=== PATIENT | female | born 1990 | race African-American/Black ===

== ENCOUNTER 2018-05-17 12:03 | Inpatient (IN) | payer OTHER ==
[~2018-05-17] VITALS: Ht 154.9 cm; Wt 113.5 kg
[~2018-05-17 12:03] MED LIST: MOTRIN800 MG PO; ZOFRAN4 MG PO
[2018-05-17 13:01] LABS: HEMATOCRIT 40.5 % (36.0-46.0); HEMOGLOBIN 13.9 G/DL (11.9-15.5); MCH 32.9 PG (29.0-34.0); MCHC 34.3 G/DL (30.0-36.0); RBC DIS.WIDTH-CV 12.4 % (11.8-14.6); RBC DIS.WIDTH-SD 43.8 % (39-53); RED BLOOD COUNT 4.22 M/uL (3.80-5.20); WHITE BLOOD COUNT 6.7 K/uL (4.1-10.2)
[2018-05-17 13:22] LABS: ALBUMIN 4.2 g/dL (3.2-4.8); CHLORIDE 107 mEq/L (99-109); POTASSIUM 3.8 mEq/L (3.7-5.4); SODIUM 139 mEq/L (136-147)
[2018-05-17 13:24] LABS: GLUCOSE 102 mg/dL (70-99); TOTAL PROTEIN 7.3 g/dL (6.4-8.3)
[2018-05-17 13:26] LABS: TOTAL BILIRUBIN 1.9 mg/dL (0.0-1.0)
[2018-05-17 13:28] LABS: ALKALINE PHOSPHATASE 141 IU/L (3-129); CREATININE 0.8 mg/dL (0.6-1.3); GFR ESTIMATE (CALCULATED) > 59 mL/min/
[2018-05-17 13:29] LABS: UREA NITROGEN (BUN) 7 mg/dL (9-23)
[2018-05-17 13:30] LABS: AST (GOT) 326 IU/L (2-34)
[2018-05-17 13:31] LABS: ALT (GPT) 456 IU/L (3-49)
[2018-05-17 13:37] LABS: QUANTITATIVE HCG < 4.0 MIU/ML
[2018-05-17 13:57] LABS: PLAT.SUFFICIENCY ADEQUATE; PLATELET COUNT 241 K/uL (156-360)
[2018-05-17 14:01] LABS: DIRECT BILIRUBIN 1.5 mg/dL (0.0-0.3)
[2018-05-17 14:03] LABS: LIPASE 5800 U/L (1.0-51.0)
[2018-05-17 16:23] LABS: TROP-I INTERPRETATION NEGATIVE; TROPONIN-I < 0.01 ng/mL (0.0-0.30)
[2018-05-17 18:44] VITALS: BP 124/64
[2018-05-17 22:18] LABS: TROP-I INTERPRETATION NEGATIVE; TROPONIN-I < 0.01 ng/mL (0.0-0.30)
[2018-05-17 23:29] VITALS: BP 100/60
[2018-05-18 03:48] VITALS: BP 94/50
[2018-05-18 05:28] LABS: BASOPHIL (%) 0.5 % (0-1); EOSINOPHIL (%) 1.7 % (0-5); EOSINOPHIL COUNT 0.1 K/uL (0-0.3); HEMATOCRIT 41.3 % (36.0-46.0); HEMOGLOBIN 13.6 G/DL (11.9-15.5); IMMATURE GRANULOCYTE (%) 0.2 % (0.0-0.7); LYMPHOCYTE (%) 51.2 % (15-42); LYMPHOCYTE COUNT 3.3 K/uL (1.0-2.8); MCH 31.7 PG (29.0-34.0); MCHC 32.9 G/DL (30.0-36.0); MCV 96.3 FL (83-99); MONOCYTE (%) 6.3 % (3-12); MONOCYTE COUNT 0.4 K/uL (0-0.8); NEUTROPHIL (%) 40.1 % (45-76); NEUTROPHIL COUNT 2.6 K/uL (1.8-6.4); PLATELET COUNT 253 K/uL (156-360); RBC DIS.WIDTH-CV 12.7 % (11.8-14.6); RBC DIS.WIDTH-SD 45.6 % (39-53); RED BLOOD COUNT 4.29 M/uL (3.80-5.20); WHITE BLOOD COUNT 6.4 K/uL (4.1-10.2)
[2018-05-18 05:45] LABS: TROP-I INTERPRETATION NEGATIVE; TROPONIN-I < 0.01 ng/mL (0.0-0.30)
[2018-05-18 05:53] LABS: ALBUMIN 4.3 G/DL (3.2-4.8); ALKALINE PHOSPHATASE 162 IU/L (3-129); ALT (GPT) 377 IU/L (3-49); AST (GOT) 169 IU/L (2-34); CHLORIDE 107 MEQ/L (99-109); CREATININE 0.8 MG/DL (0.6-1.3); DIRECT BILIRUBIN 0.3 mg/dL (0.0-0.3); GFR ESTIMATE (CALCULATED) > 59 mL/min/; GLUCOSE 79 mg/dL (70-99); LIPASE 309 U/L (1.0-51.0); POTASSIUM 4.2 MEQ/L (3.7-5.4); SODIUM 138 MEQ/L (136-147); TOTAL BILIRUBIN 0.8 MG/DL (0.0-1.0); TOTAL PROTEIN 7.1 G/DL (6.4-8.3); UREA NITROGEN (BUN) 7 mg/dL (9-23)
[2018-05-18 06:55] VITALS: BP 83/51
[2018-05-18 10:45] VITALS: BP 115/58
[2018-05-18 15:52] VITALS: BP 104/53
[2018-05-18 20:06] VITALS: BP 106/65
[2018-05-18 23:58] VITALS: BP 100/58
[2018-05-19 04:22] VITALS: BP 105/59
[2018-05-19 06:11] LABS: BASOPHIL (%) 0.4 % (0-1); EOSINOPHIL (%) 0.9 % (0-5); EOSINOPHIL COUNT 0.1 K/uL (0-0.3); HEMATOCRIT 39.1 % (36.0-46.0); IMMATURE GRANULOCYTE (%) 0.2 % (0.0-0.7); LYMPHOCYTE (%) 33.9 % (15-42); LYMPHOCYTE COUNT 1.9 K/uL (1.0-2.8); MCH 32.2 PG (29.0-34.0); MCHC 33.2 G/DL (30.0-36.0); MCV 96.8 FL (83-99); MONOCYTE (%) 8.2 % (3-12); MONOCYTE COUNT 0.5 K/uL (0-0.8); NEUTROPHIL (%) 56.4 % (45-76); NEUTROPHIL COUNT 3.2 K/uL (1.8-6.4); PLATELET COUNT 222 K/uL (156-360); RBC DIS.WIDTH-CV 12.6 % (11.8-14.6); RBC DIS.WIDTH-SD 45.4 % (39-53); RED BLOOD COUNT 4.04 M/uL (3.80-5.20); WHITE BLOOD COUNT 5.7 K/uL (4.1-10.2)
[2018-05-19 06:39] LABS: ALBUMIN 3.9 G/DL (3.2-4.8); ALKALINE PHOSPHATASE 123 IU/L (3-129); ALT (GPT) 271 IU/L (3-49); AST (GOT) 69 IU/L (2-34); CHLORIDE 108 MEQ/L (99-109); CREATININE 0.8 MG/DL (0.6-1.3); GFR ESTIMATE (CALCULATED) > 59 mL/min/; GLUCOSE 89 mg/dL (70-99); POTASSIUM 4.3 MEQ/L (3.7-5.4); SODIUM 140 MEQ/L (136-147); TOTAL BILIRUBIN 0.6 MG/DL (0.0-1.0); TOTAL PROTEIN 6.5 G/DL (6.4-8.3); UREA NITROGEN (BUN) 7 mg/dL (9-23)
[2018-05-19 07:25] VITALS: BP 96/52
[2018-05-19 11:00] VITALS: BP 100/56
[2018-05-19 15:20] VITALS: BP 117/71
[2018-05-20 06:50] VITALS: BP 95/51
[2018-05-20 10:54] LABS: ALKALINE PHOSPHATASE 121 IU/L (3-129); ALT (GPT) 200 IU/L (3-49); AST (GOT) 42 IU/L (2-34); CHLORIDE 105 MEQ/L (99-109); CREATININE 0.8 MG/DL (0.6-1.3); GFR ESTIMATE (CALCULATED) > 59 mL/min/; GLUCOSE 137 mg/dL (70-99); LIPASE 78 U/L (1.0-51.0); SODIUM 136 MEQ/L (136-147); TOTAL BILIRUBIN 0.5 MG/DL (0.0-1.0); TOTAL PROTEIN 6.6 G/DL (6.4-8.3); UREA NITROGEN (BUN) 7 mg/dL (9-23)
[2018-05-20 12:10] VITALS: BP 111/53
[2018-05-20] MEDS ORDERED: PRILOSEC20 MG PO (13:05)
== END 2018-05-20 14:40 | disposition home or self-care (01) | DRG 439 ==
LOC: EME 12:03 → EDOF 16:37 → 5EAST 16:37 → ENRESERV 16:50 → 5EAST 18:09
PROVIDERS: Internal Medicine; Internal Medicine Gastroenterology; Nurse Practitioner Family; Physician Assistant Medical
DX: K85.10 Biliary acute pancreatitis without necrosis or infection (principal); K80.71 Calculus of gallbladder and bile duct without cholecystitis with obstruction; F17.210 Nicotine dependence, cigarettes, uncomplicated; Z83.3 Family history of diabetes mellitus; E66.9 Obesity, unspecified; Z68.42 Body mass index [BMI] 45.0-49.9, adult
CPT/HCPCS: 74181; 74328; 76705; 80048; 80053; 80076; 81003; 82248; 83690; 84484; 84702; 85025; 85027; 87081; 93005; 99281; 99285; C1757; C1769; C2625; J0330; J1170; J1885; J2060; J2405; J2710; J3010; J7030; J7643

== ENCOUNTER 2018-07-08 18:21 | Emergency (ER) | payer OTHER ==
[~2018-07-08] VITALS: Ht 154.9 cm; Wt 94.4 kg
[~2018-07-08 18:21] MED LIST changes: +PRILOSEC20 MG PO
[2018-07-08 19:45] LABS: HEMATOCRIT 38.1 % (36.0-46.0); HEMOGLOBIN 12.9 G/DL (11.9-15.5); MCH 32.3 PG (29.0-34.0); MCHC 33.9 G/DL (30.0-36.0); MCV 95.5 FL (83-99); PLATELET COUNT 263 K/uL (156-360); RBC DIS.WIDTH-CV 12.5 % (11.8-14.6); RBC DIS.WIDTH-SD 44.4 % (39-53); RED BLOOD COUNT 3.99 M/uL (3.80-5.20); WHITE BLOOD COUNT 9.3 K/uL (4.1-10.2)
[2018-07-08 19:56] LABS: ALBUMIN 4.3 g/dL (3.2-4.8)
[2018-07-08 19:57] LABS: CHLORIDE 112 mEq/L (99-109); POTASSIUM 4.2 mEq/L (3.7-5.4); SODIUM 144 mEq/L (136-147)
[2018-07-08 19:59] LABS: GLUCOSE 113 mg/dL (70-99); TOTAL PROTEIN 7.4 g/dL (6.4-8.3)
[2018-07-08 20:01] LABS: TOTAL BILIRUBIN 0.4 mg/dL (0.0-1.0)
[2018-07-08 20:02] LABS: ALKALINE PHOSPHATASE 68 IU/L (3-129)
[2018-07-08 20:03] LABS: CREATININE 0.8 mg/dL (0.6-1.3); GFR ESTIMATE (CALCULATED) > 59 mL/min/
[2018-07-08 20:04] LABS: AST (GOT) 17 IU/L (2-34); UREA NITROGEN (BUN) 10 mg/dL (9-23)
[2018-07-08 20:05] LABS: ALT (GPT) 26 IU/L (3-49)
[2018-07-08 20:12] LABS: QUANTITATIVE HCG < 4.0 MIU/ML
[2018-07-08 22:16] LABS: APPEARANCE SL.HAZY ((CLEAR)); BILIRUBIN NEGATIVE; BLOOD SMALL; COLOR YELLOW ((YELLOW)); GLUCOSE (STRIP) NEGATIVE; KETONES NEGATIVE; LEUKOCYTES NEGATIVE; NITRITE POSITIVE; PROTEIN (STRIP) NEGATIVE; SPECIFIC GRAVITY 1.021 (1.000-1.030)
[2018-07-08 22:41] LABS: AMYLASE 51 IU/L (1-118)
[2018-07-08 22:49] LABS: BACTERIA 4+ /HPF; EPITHELIAL CELLS 1+ /HPF; MUCUS NONE SEEN /LPF; RED BLOOD CELLS 0-5 /HPF (0-5); UCUL ADDED? YES; WHITE BLOOD CELLS 0-5 /HPF (0-5)
[2018-07-08 22:50] LABS: LIPASE 41 U/L (1.0-51.0)
[2018-07-08] MEDS ORDERED: PERCOCET 5/31 TABLET PO (23:46)
[2018-07-08] MEDS ORDERED: ZOFRAN4 MG PO (23:47)
[2018-07-09 00:27] VITALS: BP 106/57
== END 2018-07-09 00:31 | disposition home or self-care (01) ==
LOC: EME 18:21
PROVIDERS: Physician Assistant
DX: K80.20 Calculus of gallbladder without cholecystitis without obstruction (principal); Z87.891 Personal history of nicotine dependence
CPT/HCPCS: 76705; 80053; 81003; 82150; 83690; 84702; 85027; 87077; 87086; 87186; 99281; 99285; J2270; J2405; J3010; J7030